=== PATIENT | female | born 1985 | race Caucasian/White ===

== ENCOUNTER 2017-01-14 08:45 | Inpatient (IN) | payer BC ==
[2017-01-21] MEDS ORDERED: Acetaminophen 500 MG Tab PO ONE (06:00)
[2017-01-21] MEDS ORDERED: Celecoxib 200 MG Cap PO ONE (06:00)
[2017-01-21] MEDS ORDERED: Dextrose 5%-Lactated Ringers 1,000 ML IV SCH ×3 (06:00→21:30)
[2017-01-21] MEDS ORDERED: Scopolamine 1.5 MG Transdermal Patch TOP ONE (06:00)
[2017-01-21] MEDS ORDERED: Gabapentin 300 MG Cap PO ONE (06:00)
[2017-01-21] MEDS ORDERED: cefOXitin 2 GM Vial ONE (06:39)
[2017-01-21] MEDS ORDERED: Glycopyrrolate 0.2 MG/ML 5 ML MDV ONE (06:49)
[2017-01-21] MEDS ORDERED: Rocuronium 50 MG/5 ML Vial ONE (06:49)
[2017-01-21] MEDS ORDERED: Succinylcholine 200 MG/10 ML MDV ONE (06:49)
[2017-01-21] MEDS ORDERED: Ondansetron 4 MG/2 ML SDV ONE (06:49)
[2017-01-21] MEDS ORDERED: Neostigmine Methylsulfate 1 MG/ML 5 ML Syringe ONE (06:49)
[2017-01-21] MEDS ORDERED: Propofol 200 MG/20 ML SDV ONE (06:49)
[2017-01-21] MEDS ORDERED: Dexamethasone 4 MG/ML SDV ONE (06:49)
[2017-01-21] MEDS ORDERED: cefOXitin 2 GM in Sodium Chloride 0.9% 100 ML IV ONE (07:30)
[2017-01-21] MEDS ORDERED: cefOXitin 2 GM in Sodium Chloride 0.9% 50 ML IV ONE (07:30)
[2017-01-21] MEDS ORDERED: Ropivacaine 60 ML, Dexamethasone 8 MG, EPINEPHrine 0.4 MG, Sodium Chloride 0.9% 17.6 ML NERVRT ONE ×4 (07:45)
[2017-01-21] MEDS ORDERED: Ketamine 500 MG/5 ML MDV IV ONE (07:45)
[2017-01-21] MEDS ORDERED: Lidocaine 2% 100 MG/5 ML Syringe IVPUSH ONE (07:45)
[2017-01-21] MEDS ORDERED: fentaNYL 100 MCG/2 ML SDV ONE (09:21)
[2017-01-21] MEDS ORDERED: Ondansetron 4 MG/2 ML SDV IVPUSH ONE (10:30)
[2017-01-21] MEDS ORDERED: hydrOXYzine HCl 100 MG/2 ML SDV IM ONE (10:30)
[2017-01-21] MEDS: Lidocaine 0.4%/D5W 2 GM/500 ML BAG IV SCH (11:53)
[2017-01-21] MEDS ORDERED: Labetalol 20 MG/4 ML Syringe IVPUSH PRN (12:00)
[2017-01-21] MEDS ORDERED: Ondansetron 4 MG/2 ML SDV IVPUSH PRN (12:00)
[2017-01-21] MEDS ORDERED: diphenhydrAMINE 50 MG/ML SDV IVPUSH PRN (12:00)
[2017-01-21] MEDS ORDERED: hydrOXYzine HCl 100 MG/2 ML SDV IM PRN (12:00)
[2017-01-21] MEDS ORDERED: Metoclopramide 10 MG/2 ML SDV IVPUSH PRN (12:00)
[2017-01-21] MEDS: cefOXitin 2 GM in Sodium Chloride 0.9% 50 ML IV SCH ×2 (12:26→17:38)
[2017-01-21] MEDS: MVI, Adult with Vitamin K 10 ML, Thiamine 200 MG, Chromium/Copper/Mang/Selen/Zn 1 ML in... IV SCH ×8 (13:56→15:36)
[2017-01-21] MEDS ORDERED: Pantoprazole 40 MG Vial IVPUSH SCH (14:00)
[2017-01-21] MEDS: Gabapentin 250 MG/5 ML Solution ML 470 ML Bottle PO SCH ×2 (14:42→20:28)
[2017-01-21] MEDS: Acetaminophen Soln 650 MG/20.3 ML UD Cup PO SCH ×2 (16:05→21:13)
[2017-01-21] MEDS: Heparin Sodium 5,000 Units/ML Vial SUBCUT SCH (17:38)
[2017-01-22] MEDS: Lidocaine 0.4%/D5W 2 GM/500 ML BAG IV SCH (00:14)
[2017-01-22] MEDS: cefOXitin 2 GM in Sodium Chloride 0.9% 50 ML IV SCH (00:18)
[2017-01-22] MEDS ORDERED: Iohexol 647 MG/ML 50 ML SDV PO STA (00:24)
[2017-01-22] MEDS: Acetaminophen Soln 650 MG/20.3 ML UD Cup PO SCH ×4 (04:49→21:41)
[2017-01-22] MEDS: Heparin Sodium 5,000 Units/ML Vial SUBCUT SCH ×2 (04:59→19:16)
[2017-01-22] MEDS ORDERED: Dextrose 5%-Lactated Ringers 1,000 ML IV SCH ×2 (08:00)
[2017-01-22] MEDS: SCOPOLAMINE PATCH CHECK TOP SCH (08:31)
[2017-01-22] MEDS: Celecoxib 200 MG Cap PO SCH (08:31)
[2017-01-22] MEDS: Gabapentin 250 MG/5 ML Solution ML 470 ML Bottle PO SCH ×3 (08:34→21:44)
--- NOTE | 2017-01-22 08:49 | CR ---
Limited upper GI The patient is status post Olga-en-Y gastric bypass. There are left upper quadrant drains in place. T here is no extravasation of contrast. The gastric pouch empties readily into a nondilated Olga limb. No complications are evident. Impression: 1. Status post Olga-en-Y gastric bypass without evidence for complication.
[2017-01-22] MEDS ORDERED: MVI, Adult with Vitamin K 10 ML, Thiamine 200 MG, Chromium/Copper/Mang/Selen/Zn 1 ML in... IV SCH ×4 (16:00)
[2017-01-23] MEDS: Heparin Sodium 5,000 Units/ML Vial SUBCUT SCH (05:07)
[2017-01-23] MEDS: Acetaminophen Soln 650 MG/20.3 ML UD Cup PO SCH ×2 (05:07→09:30)
[2017-01-23] MEDS: Celecoxib 200 MG Cap PO SCH (08:56)
[2017-01-23] MEDS ORDERED: Cyanocobalamin (Vitamin B12) 1,000 MCG/ML SDV IM ONE (09:00)
[2017-01-23] MEDS: Gabapentin 250 MG/5 ML Solution ML 470 ML Bottle PO SCH (09:01)
[2017-01-23] MEDS: SCOPOLAMINE PATCH CHECK TOP SCH (09:02)
--- NOTE | 2017-01-23 13:15 | PN ---
DATE OF SERVICE: 01/22/2017 The patient has been afebrile with stable vital signs. No major problems are noted overnight. Upper GI x-ray looks good. Oral intake has been satisfactory as is the urine output. Her pain control appears to be satisfactory. We will begin step-2 diet today, have her get in the shower, and back down the IV rate. She does not have any home medications that need to be restarted. Armando Brown MD /[id number]
--- NOTE | 2017-01-23 14:51 | OR ---
DATE OF PROCEDURE: 01/21/2017 PREOPERATIVE DIAGNOSIS: Morbid obesity. POSTOPERATIVE DIAGNOSES: 1. Morbid obesity. 2. Marked hepatomegaly. 3. Paraesophageal diaphragmatic hernia. OPERATIVE PROCEDURE: 1. Laparoscopic Olga-en-Y gastric bypass with long limb gastroenterostomy (22971). 2. Thomas-Cut needle liver biopsy (53996). 3. Repair of paraesophageal diaphragmatic hernia (39420). ANESTHESIA: General. MORTICIAN HELPER: Olimpia Bloom PA-C. INDICATION FOR PROCEDURE: This is a 31-year-old presenting with longstanding morbid obesity and increasingly significant comorbidities. After preoperative evaluation and discussion, she wished to proceed with a gastric bypass procedure. Potential risks including bleeding, infection, leaks from various GI tract closures, problems with bowel obstruction overtime, as well as possibility of cardiopulmonary, septic, or hemorrhagic complications leading to were all discussed, and the patient wishes to proceed. DETAILS OF PROCEDURE: The patient was taken to the operating room and placed in a supine position. After general endotracheal anesthesia was induced, she was converted to a lithotomy position. At that point, a bilateral subcostal transversus abdominis plane block was placed with continuous ultrasound visualization, injecting the usual solution on each side. The abdomen was then prepped and draped and an orogastric tube placed per anesthesia. At 15 cm inferior, 5 cm left of xiphoid process, a transverse incision was made and peritoneal cavity entered under direct vision with Optiview trocar inflated to 15 mmHg pressure of CO2. Laparoscope was then reinserted. No underlying trocar insertion site injuries were seen. Following this, 5 additional trocars were placed across the upper and mid abdomen, and general exploration was undertaken. The patient was noted to have marked hepatomegaly with liver being roughly 2 to 3 times normal as the liver grossly fatty infiltrated. Thomas-Cut needle biopsies were obtained from the left lobe of the liver. Minimal bleeding from the biopsy sites was controlled with electrocautery. The omentum was then divided in the midline up to the level of the transverse colon. This allowed identification of the small bowel at the ligament of Treitz. Small bowel was then traced out 150 cm distal to that point, where it was divided transversely with a JORDAN stapler. Small bowel was then traced out an additional 150 cm, where the [id number] enteroenterostomy was accomplished with internal firing of the Endo-JORDAN 60 mm stapler. The common opening was then closed transversely with the same stapler, angles anastomosed, and mesenteric defect approximated with some 0 Ethibond stitch, along with fibrin sealant. The divided end of the Olga limb was then from the mesentery for a few centimeters, which allowed an antecolic position of the Olga limb up to the level of the gastroesophageal junction without tension. The liver was then retracted anteriorly. The patient was noted to have a paraesophageal diaphragmatic hernia with prolapse of the perigastric fat and fundus in a plane anterior and slightly to the left of the course of the esophagus. The hernia was reduced, the peritoneum overlying it, incised and reflected downward. The diaphragmatic hernia was then repaired with some 0 Ethibond sutures, reinforced with PTFE pledgets in an anterior position. At this point, the gastrointestinal catheter was inflated to 15 mL and pulled up snugly against the EG junction. Gastric wall over the apex balloon was then marked with electrocautery, and balloon catheter deflated and pulled up from the esophagus. The lesser omental tissue adjacent to gastric cardia was then incised, allowing dissection behind the stomach at that level. Pouch formation was initiated with a transverse firing of the JORDAN stapler at the level of the cauterized dmitriy in the gastric cardia. Pouch was then completed with 2 additional firings up to and through the angle of His. Upon completion of the pouch, both staple lines were noted to be intact. The anvil of a 25 mm EEA stapler was attached to Heard sump type tube. The latter was brought down through the opening in the gastric pouch and allowing the anvil to be pulled down through the mouth and into the gastric pouch. The divided end of the Olga limb was then opened, and the main body of the EEA stapler was passed several centimeters in the lumen of the small bowel, brought up the anvil and united it, thus creating the gastrojejunostomy. Upon removal of the stapler, double donuts of mucosa were noted within it. Small bowel was closed off with a vascular staple line. Leak test was accomplished with injection of 120 mL of air in the gastric pouch while submerged with a cefoxitin- containing saline solution. No leaks were identified. One Rudy-Martínez drain was then placed adjacent to the gastrojejunostomy and taken out through the left subcostal trocar sites. The trocars were then sequentially removed and peritoneal cavity deflated. The incision was closed with some 4-0 Vicryl skin stitch and drains affixed with some 4-0 Vicryl stitch as well. Dressing applied. The patient was taken to the recovery room in satisfactory condition. Physician health information assistant, Olimpia Bloom, played an essential role in assisting in this case, helping to position the patient, retract structures as needed well as suturing and cutting sutures when indicated. Her presence improved patient safety and decreased the operative time. Armando Brown MD /[id number]
--- NOTE | 2017-01-24 11:17 | DISCH ---
ADMISSION DIAGNOSES: Morbid obesity, body mass index 52, hirsutism, irregular menses, polycystic ovary disease, hyperinsulinism, hypertriglyceridemia, nephrolithiasis and sleep apnea. DISCHARGE DIAGNOSES: Laparoscopic Olga-en-Y gastric bypass surgery with long limb gastroenterostomy, Thomas-Cut needle liver biopsy, and repair of paraesophageal diaphragmatic hernia for morbid obesity, marked hepatomegaly, and periesophageal diaphragmatic hernia. Date of surgery 01/21/2017. Surgeon is Armando Brown MD. HISTORY: Manju Rojas is a 31-year-old female with longstanding history of morbid obesity and increasingly significant comorbidities. After preoperative evaluation and discussion of possible risks and possible complications, she wished to proceed with surgical procedure. HOSPITAL COURSE: Manju had her surgery on 01/21/2017. She had no operative complications. On postop day #1, her upper GI was normal. She was started on a step-2 without cereal gastric bypass diet. On postop day 2, her activity was good. She received adequate staff and dietary education. Pain was controlled. Vital signs were stable, and she was able to be discharged to home. PHYSICAL EXAMINATION: GENERAL: Manju Rojas is a 31-year-old female. VITAL SIGNS: Height is 5 feet 5 inches. Weight is 315 pounds. BMI is 52. TPR 96.4, 70, 16. Blood pressure 132/73. HEENT: Negative. NECK: Supple. HEART: Regular rate and rhythm. LUNGS: Clear. ABDOMEN: Sutures in place 4 x 4 over previous SAGE drain site. Abdominal binder is on. EXTREMITIES: Without peripheral edema. DISPOSITION: Discharged to home. CONDITION: Stable and improving. FOLLOWUP APPOINTMENT: With Olimpia Bloom PA-C, on 01/31/2017 at 10 a.m. HOME MEDICATIONS: 1. Tylenol 650 mg/20.3 mL to take 650 mL every 6 hours for 2 weeks to 1200 mL prescribed. 2. Celebrex 200 mg p.o. daily #14. 3. Nexium 40 mg continue as she took at home. 4. Flonase, use as directed. DIET: Step-2 gastric bypass diet without cereal for 2 weeks. Drink 8 to 10 glasses of water a day. ACTIVITY: No lifting greater than 10 pounds for 2 weeks. Driving, do not drive for 1 week. Shower/bathing, may shower. Keep operative site clean and dry. Wear abdominal binder for 2 weeks and then as tolerated. Notify provider of fever, increased pain, swelling, redness, nausea or vomiting. Use incentive spirometer 10 times every hour while awake.
== END 2017-01-23 10:39 | disposition home or self-care (01) | DRG 403 ==
LOC: JP.SDS 01-21 05:36 → JP.SDSSCHI 01-21 05:36 → EDSTATUS 01-21 07:30 → JP.2SS 01-21 09:50
PROVIDERS: ADMIT Surgery; ATTEND Surgery
PROC: 0D164ZA Bypass Stomach to Jejunum, Percutaneous Endoscopic Approach (ICD-10-PCS; principal; 2017-01-21)
PROC: 0FB24ZX Excision of Left Lobe Liver, Percutaneous Endoscopic Approach, Diagnostic (ICD-10-PCS; 2017-01-21)
PROC: 0BQT4ZZ Repair Diaphragm, Percutaneous Endoscopic Approach (ICD-10-PCS; 2017-01-21)
PROC: 3E0T3BZ Introduction of Anesthetic Agent into Peripheral Nerves and Plexi, Percutaneous Approach (ICD-10-PCS; 2017-01-21)
DX: E66.01 Morbid (severe) obesity due to excess calories (principal); R16.0 Hepatomegaly, not elsewhere classified; K44.9 Diaphragmatic hernia without obstruction or gangrene; E28.2 Polycystic ovarian syndrome; G47.30 Sleep apnea, unspecified; Z87.891 Personal history of nicotine dependence; R76.0 Raised antibody titer; R12 Heartburn; Z68.43 Body mass index [BMI] 50.0-59.9, adult
CPT/HCPCS: 36415; 74240; 74240-26; 82962; 86850; 86900; 86901; 88307; 88313; A9270-GY; C9113; J0171; J0330; J0694; J1100; J1644; J2001; J2405; J2704; J2710; J2795; J3010; J3410; J3411; J3420; J7030; J7040; J7042; J7050; Q9967

== ENCOUNTER 2017-12-19 06:42 | Day surgery (SDC) | payer BC ==
[2017-12-19] MEDS ORDERED: Propofol 200 MG/20 ML SDV ONE (07:35)
[2017-12-19] MEDS ORDERED: fentaNYL 100 MCG/2 ML SDV ONE (07:35)
[2017-12-19] MEDS ORDERED: Midazolam 1 MG/ML 2 ML SDV ONE (07:35)
[2017-12-19] MEDS ORDERED: Dextrose 5%-Lactated Ringers 1,000 ML IV SCH (07:45)
[2017-12-19] MEDS: Glycopyrrolate 0.2 MG/ML 2 ML SDV IVPUSH ONE (08:01)
[2017-12-19] MEDS ORDERED: Pantoprazole 40 MG Vial IVPUSH ONE (08:34)
--- NOTE | 2017-12-24 06:52 | OR ---
DATE OF PROCEDURE: 12/19/2017 PREOPERATIVE DIAGNOSIS: Epigastric pain status post Olga-en-Y gastric bypass. POSTOPERATIVE DIAGNOSIS: Mild pouch gastritis. OPERATIVE PROCEDURE: Upper GI endoscopy with biopsies of gastric pouch for CLOtest. ANESTHESIA: IV sedation. INDICATION FOR PROCEDURE: This is a 32-year-old status post Olga-en-Y gastric bypass in January 2017. She presents now with some ongoing epigastric discomfort. The plan is to proceed with upper GI endoscopy with biopsies and/or dilation as indicated. Potential risks including bleeding and perforation were discussed, and the patient wishes to proceed. DESCRIPTION OF PROCEDURE: The patient was taken to the operating room and placed in a left lateral decubitus position. IV sedation was administered, after which the upper GI endoscope was passed orally through the length of the esophagus into the gastric pouch, from there through the gastrojejunostomy roughly 20 cm into the Olga limb. Findings included normal hypopharynx, larynx, upper esophageal sphincter, and esophageal body. At the EG junction, there was minimal inflammation; however, the gastric pouch itself was quite edematous and reddened and patchy areas consistent with some pouch gastritis. There was no stricturing at the gastrojejunostomy. This was widely open and no marginal ulcers present at the anastomotic site as well. The remaining portion of the Olga limb was visualized and was unremarkable. At this point, biopsies were obtained from the gastric pouch, sent for CLOtest for H. pylori. Minimal bleeding from the biopsy sites was seen, and the procedure was then concluded. The patient was taken to the recovery room in satisfactory condition. The patient will be given Protonix 40 mg IV in the recovery room and then begin on Protonix 40 mg orally daily. She will be following up with Olimpia Bloom in [facility] on 01/07/2018. Armando Brown MD /[id number] BRENDEN Her
== END 2017-12-19 09:45 | disposition home or self-care (01) ==
LOC: JP.SDS 06:42
PROVIDERS: ATTEND Surgery
DX: K29.70 Gastritis, unspecified, without bleeding (principal); K91.89 Other postprocedural complications and disorders of digestive system; E66.01 Morbid (severe) obesity due to excess calories; F17.200 Nicotine dependence, unspecified, uncomplicated; Z98.84 Bariatric surgery status
CPT/HCPCS: 43239; 87081; C9113; J2250; J2704; J3010; J3490; J7042

== ENCOUNTER 2020-03-27 15:24 | Inpatient (IN) | payer BC ==
[2020-03-27] MEDS ORDERED: Acetaminophen 325 MG Tab PO PRN (16:52)
[2020-03-27] MEDS ORDERED: Acetaminophen 650 MG Supp RECTAL PRN (16:52)
[2020-03-27] MEDS ORDERED: Ondansetron 4 MG/2 ML SDV IVPUSH PRN (16:53)
[2020-03-27] MEDS ORDERED: HYDROmorphone 1 MG/ML Syringe IVPUSH PRN (16:54)
[2020-03-27] MEDS ORDERED: HYDROmorphone 0.5 MG/0.5 ML Syringe IVPUSH PRN (16:54)
[2020-03-27] MEDS ORDERED: cefOXitin 2 GM in Sodium Chloride 0.9% 50 ML IV ONE (17:00)
[2020-03-27] MEDS ORDERED: Dextrose 5%-Lactated Ringers 1,000 ML IV SCH (17:00)
[2020-03-27] MEDS: Pantoprazole 40 MG Vial IVPUSH SCH (17:59)
[2020-03-27] MEDS ORDERED: MVI, Adult with Vitamin K 10 ML, Thiamine 200 MG, Chromium/Copper/Mang/Selen/Zn 1 ML in... IV SCH ×4 (20:30)
[2020-03-27] MEDS ORDERED: Thiamine 200 MG/2 ML MDV ONE (20:45)
[2020-03-27] MEDS ORDERED: MVI, Adult with Vitamin K 10 ML SDV ONE (20:45)
--- NOTE | 2020-03-28 08:12 | PN ---
DATE OF SERVICE: 03/28/2020 SUBJECTIVE: Manju has a partial small-bowel obstruction and intussusception at the jejunojejunostomy. She is n.p.o. Vital signs have been stable, and she will be having surgery. Case to follow today. REVIEW OF SYSTEMS: The remainder of the review of systems is negative for any pertinent positives and negatives. OBJECTIVE: GENERAL: Manju is a pleasant 34-year-old female. VITAL SIGNS: TPR 98.1, 76, and 18 and blood pressure 110/67. HEENT: Negative. NECK: Supple. HEART: Regular rate and rhythm. LUNGS: Clear. ABDOMEN: Soft. Minimally tender. EXTREMITIES: Without peripheral edema. ASSESSMENT: 1. Intussusception at the jejunojejunostomy. 2. Status post Olga-en-Y gastric bypass surgery. 3. Unspecified surgical malabsorption. 4. Reactive hypoglycemia. 5. Vitamin B12 deficiency. 6. Vitamin D deficiency. 7. Polycystic ovary disease. 8. Sleep apnea. PLAN: Remain n.p.o. Orders are to be written postoperatively. Olimpia Bloom PA-C /[id number]
[2020-03-28] MEDS ORDERED: fentaNYL 250 MCG/5 ML SDV ONE ×2 (09:10→10:53)
[2020-03-28] MEDS ORDERED: Rocuronium 50 MG/5 ML Vial ONE (09:11)
[2020-03-28] MEDS ORDERED: Succinylcholine 200 MG/10 ML MDV ONE (09:11)
[2020-03-28] MEDS ORDERED: Dexamethasone 4 MG/ML SDV ONE (09:11)
[2020-03-28] MEDS ORDERED: Ondansetron 4 MG/2 ML SDV ONE (09:11)
[2020-03-28] MEDS ORDERED: Neostigmine Methylsulfate 1 MG/ML 5 ML Syringe ONE (09:11)
[2020-03-28] MEDS ORDERED: Glycopyrrolate 0.2 MG/ML 5 ML MDV ONE (09:11)
[2020-03-28] MEDS ORDERED: Propofol 200 MG/20 ML SDV ONE (09:11)
[2020-03-28] MEDS ORDERED: Meropenem 500 MG SDV ONE (09:20)
[2020-03-28] MEDS ORDERED: Bupivacaine 0.5% 50 ML MDV ONE (09:20)
[2020-03-28] MEDS ORDERED: Lidocaine 1% with EPINEPHrine 1:100,000 50 ML MDV ONE (09:20)
[2020-03-28] MEDS ORDERED: Lactated Ringers 1,000 ML ONE (10:25)
[2020-03-28] MEDS: cefOXitin 2 GM in Sodium Chloride 0.9% 50 ML IV ONE ×2 (10:59→12:49)
[2020-03-28] MEDS ORDERED: Ketamine 500 MG/5 ML MDV IV SCH (11:00)
[2020-03-28] MEDS ORDERED: Ketamine 50 MG in Sodium Chloride 0.9% 49.5 ML IV SCH (11:00)
[2020-03-28] MEDS ORDERED: Magnesium Sulfate 2.6 GM in Sodium Chloride 0.9% 100 ML IV SCH (11:00)
[2020-03-28] MEDS ORDERED: Ropivacaine 44 ML, dexAMETHasone 8 MG, EPINEPHrine 0.4 MG, Sodium Chloride 0.9% 33.6 ML NERVRT SCH ×4 (11:00)
[2020-03-28] MEDS ORDERED: hydrOXYzine HCL 100 MG/2 ML SDV IM ONE (12:00)
[2020-03-28] MEDS ORDERED: fentaNYL 100 MCG/2 ML SDV IVPUSH ONE (12:01)
[2020-03-28] MEDS ORDERED: HYDROmorphone/Normal Saline 15 MG/30 ML PCA IV PRN (12:39)
[2020-03-28] MEDS ORDERED: hydrOXYzine HCL 100 MG/2 ML SDV IM PRN (13:00)
[2020-03-28] MEDS ORDERED: Acetaminophen 500 MG Tab PO PRN (13:00)
[2020-03-28] MEDS ORDERED: diphenhydrAMINE 50 MG/ML SDV IVPUSH PRN (13:00)
[2020-03-28] MEDS ORDERED: Naloxone 0.4 MG/ML SDV IV PRN (13:00)
[2020-03-28] MEDS ORDERED: Labetalol 20 MG/4 ML Syringe IVPUSH PRN (13:00)
[2020-03-28] MEDS ORDERED: Metoclopramide 10 MG/2 ML SDV IVPUSH PRN (13:00)
[2020-03-28] MEDS ORDERED: Ondansetron 4 MG/2 ML SDV IVPUSH PRN (13:00)
[2020-03-28] MEDS ORDERED: Scopolamine 1.5 MG Transdermal Patch TOP SCH (14:00)
[2020-03-28] MEDS: Acetaminophen 500 MG Tab PO SCH ×2 (14:36→23:06)
[2020-03-28] MEDS: FLUoxetine 20 MG Cap PO SCH (14:36)
[2020-03-28] MEDS: Cyclobenzaprine 10 MG Tab PO PRN ×2 (14:41→23:05)
[2020-03-28] MEDS ORDERED: MVI, Adult with Vitamin K 10 ML, Thiamine 200 MG, Zinc/Copper/Manganese/Selenium 1 ML i... IV SCH ×4 (16:00)
[2020-03-28] MEDS: cefOXitin 2 GM in Sodium Chloride 0.9% 50 ML IV SCH ×2 (17:12→23:07)
[2020-03-28] MEDS: Pantoprazole 40 MG Vial IVPUSH SCH (17:12)
[2020-03-28] MEDS: Heparin Sodium 5,000 Units/ML Vial SUBCUT SCH (20:35)
[2020-03-28] MEDS: Celecoxib 200 MG Cap PO SCH (20:35)
[2020-03-28] MEDS: Dextrose 5%-Lactated Ringers 1,000 ML IV SCH (21:24)
[2020-03-28] MEDS ORDERED: Calcium Gluconate 10% 1 GM/10 ML SDV IVPUSH PRN (23:59)
[2020-03-29] MEDS ORDERED: Iopamidol 612 MG/ML 50 ML SDV PO STA (03:37)
[2020-03-29] MEDS: Dextrose 5%-Lactated Ringers 1,000 ML IV SCH (03:43)
[2020-03-29] MEDS: cefOXitin 2 GM in Sodium Chloride 0.9% 50 ML IV SCH (04:47)
[2020-03-29] MEDS: Acetaminophen 500 MG Tab PO SCH (05:48)
[2020-03-29] MEDS ORDERED: HYDROmorphone 2 MG Tab PO PRN (06:57)
[2020-03-29] MEDS ORDERED: Ondansetron 4 MG Tab.DIS PO PRN (06:57)
[2020-03-29] MEDS ORDERED: Dextrose 5%-Lactated Ringers 1,000 ML IV SCH (07:00)
[2020-03-29] MEDS ORDERED: Celecoxib 200 MG Cap PO SCH (08:00)
--- NOTE | 2020-03-29 08:29 | DISCH ---
ADMISSION DIAGNOSES: 1. Intussusception/small-bowel obstruction, status post Olga-en-Y gastric bypass surgery. 2. Unspecified surgical malabsorption. 3. B12 deficiency. 4. Chronic constipation. 5. Depression. 6. Hypertriglyceridemia. 7. Reactive hypoglycemia. 8. History of migraine headaches. 9. Polycystic ovary syndrome. 10.Sleep apnea. 11.Smoking addiction. DISCHARGE DIAGNOSIS: Exploratory laparotomy with: 1. Reduction of small bowel volvulus and closure of internal hernia. 2. Small bowel resection. 3. Cecal pexy. 4. Placement of Interceed mesh. POSTOPERATIVE DIAGNOSES: 1. Small bowel obstruction secondary to small bowel volvulus. 2. Chronic intussusception at the jejunojejunostomy. 3. Hypermobile cecum. DATE OF PROCEDURE: 03/28/2020. SURGEON: Armando Brown MD. HISTORY: Manju Rojas is a 34-year-old female with postprandial abdominal pain. After preoperative evaluation and discussion of possible risks and possible complications, she wished to proceed with surgical procedure. HOSPITAL COURSE: Manju had her surgery on 03/28/2020. She had no operative complications. On postoperative day #1, she was able to be discharged to home. Pain was controlled. Activity good. Oral intake on step 2 gastric bypass diet with no cereal adequate. PHYSICAL EXAMINATION: GENERAL: Manju Rojas is a 34-year-old female. VITAL SIGNS: Height is 5 feet 6 inches. Weight is 195 pounds. BMI is 31.5. HEENT: Negative. NECK: Supple. HEART: Regular rate and rhythm. LUNGS: Clear. ABDOMEN: Aquacel dressings. Clean and dry. Abdominal binder is on. EXTREMITIES: Without peripheral edema. DISPOSITION: Discharged to home. CONDITION: Stable and improving. FOLLOWUP: Appointment with Olimpia Bloom PA-C, on 04/07/2020 at 10 a.m. This appointment will be virtual, and she will have her sharri removed at her primary care provider office. HOME MEDICATIONS: 1. Celebrex 200 mg oral b.i.d., #28. 2. Dilaudid 2 mg 1 to 2 every 4 hours p.r.n. pain, #42. 3. Tylenol 1000 mg every 8 hours p.r.n. pain. 4. Zofran ODT 4 mg sublingual every 4 hours p.r.n. nausea. 5. Tylenol Extra Strength 1000 mg every 8 hours. 6. Flonase 2 sprays in each nostril p.r.n. rhinitis. 7. Triamcinolone cream 1 applicator twice daily. 8. Vitamin A 3000 mcg oral daily. Discontinue taking vitamin D3, B12, multivitamin, and calcium until after first postop appointment. DIET: Step 2 gastric bypass diet with no cereal until 04/11/2020. ACTIVITY: No lifting greater than 10 pounds for 6 weeks. Other activity: Walk at least 6 times daily inside your home. Driving: Do not drive for 1 week. Shower/bathing: May shower. DISCHARGE INSTRUCTIONS: Notify provider if any fever, increased pain, swelling, redness, drainage, nausea, or vomiting. Wound incision care: Keep site clean and dry. Take off Aquacel dressing on , 03/31/2020. Wear abdominal binder for 6 weeks if tolerated. Special instruction: Use incentive spirometer 10 times every hour while awake for 1 week. /[id number]
[2020-03-29] MEDS: FLUoxetine 20 MG Cap PO SCH (08:56)
[2020-03-29] MEDS: Heparin Sodium 5,000 Units/ML Vial SUBCUT SCH (08:56)
[2020-03-29] MEDS: Celecoxib 200 MG Cap PO SCH (08:56)
[2020-03-29] MEDS ORDERED: SCOPOLAMINE PATCH CHECK TOP SCH (09:00)
[2020-03-29] MEDS ORDERED: Liraglutide (rDNA Origin) 0.6 MG/0.1 ML 3 ML Pen SUBCUT SCH (09:00)
--- NOTE | 2020-03-29 09:42 | CR ---
UGI Limited HISTORY: Postbariatric surgery FINDINGS: There is contrast in the colon from previous CT. This obscures some detail in the left upper quadrant. Patient swallowed water-soluble contrast. Upright views of the abdomen show no evidence of extravasation or obstruction. IMPRESSION: Status post bariatric surgery No extravasation or obstruction seen
[2020-03-29] MEDS ORDERED: MVI, Adult with Vitamin K 10 ML, Thiamine 200 MG, Zinc/Copper/Manganese/Selenium 1 ML i... IV SCH ×4 (16:00)
[2020-03-30] MEDS ORDERED: Cyanocobalamin (Vitamin B12) 1,000 MCG/ML SDV IM ONE (09:00)
--- NOTE | 2020-04-04 14:14 | OR ---
DATE OF PROCEDURE: 03/28/2020 SURGEON: Armando Brown MD PREOPERATIVE DIAGNOSIS: Partial small bowel obstruction associated with intussusception on the CT scan. POSTOPERATIVE DIAGNOSES: 1. Partial small bowel obstruction secondary to: a. Small bowel volvulus. b. Chronic intussusception at previous jejunojejunostomy. 2. Hypermobile cecum. OPERATIVE PROCEDURE: 1. Exploratory laparotomy with: a. Reduction of small bowel volvulus and closure of internal hernia (97459). b. Small bowel resection (49110). c. Cecopexy (34282). d. Placement of Interceed mesh to limit recurrent adhesion formation of pelvic and abdominal wall and underlying viscera (77459). ANESTHESIA: General. GSE MECHANIC: Olimpia Bloom PA-C INDICATIONS FOR PROCEDURE: This is a 34-year-old status post previous Olga-en-Y gastric bypass presenting with intussusception at the previous jejunojejunostomy. There was also some suggestion of partial obstruction related to hypermobile cecum on CT scan. The plan is to proceed with limited exploratory laparotomy with procedures as indicated and most likely including revision of the jejunojejunostomy and possible cecopexy depending on the intraoperative inspection of that structure. Potential risks of the procedure including bleeding, infection, leaks from various GI tract closures, and problems with bowel obstruction over time recurring were all reviewed and the patient wishes to proceed. The patient would like to lose little bit more weight, and we will consider reconstructing the small bowel limb lengths so as to facilitate some additional weight loss. Potential side effects from that such as decreased frequency of bowel movements and need for additional rigorousness with regard to following up of metabolic and nutritional issues were all gone over and likewise the patient wishes to proceed. DETAILS OF PROCEDURE: The patient was taken to the operating room and placed in a supine position after general endotracheal anesthesia was induced. A Rodriguez catheter was inserted and the abdomen prepped and draped. A midline incision from the umbilicus roughly a handsbreadth towards the xiphoid was then made and carried down through the full thickness of abdominal wall. Upon entering the peritoneal cavity, the small bowel was inspected. As expected, the patient's jejunojejunostomy noted to be quite edematous and hyperemic related to recurrent problems with intussusception. The patient was also noted to have small bowel volvulus with rotation of large portion of the small bowel underneath the space between the Olga limb and the underlying transverse colon. This was reduced and that mesenteric defect then closed with 2-0 silk stitch. The point where the Olga limb entered the jejunojejunostomy was then detached with a JORDAN stapler. The remaining Olga limb at the point of the biliopancreatic limb entering wider than the common limb was felt to be otherwise intact at this point. The Olga limb at this point was measured to be at 200 cm and we then moved the jejunojejunostomy down further distally with the common limb now being at 250 cm and the biliopancreatic limb at 150 cm. At that point, the [id number] enteroenterostomy was accomplished with internal firing of the Endo-JORDAN 60 mm stapler, followed by 30 mm stapler. Common opening was then closed transversely with the JORDAN stapler as well and the angles anastomosed and mesenteric defect approximated with some 3-0 Vicryl stitch and silk stitch for the mesentery portion. The cecum was then inspected. This was noted to quite hypermobile and appeared to be resembling somewhat of a picture of cecal bascule. Given this, the fatty tissue, i.e., appendix epiploica along the edges of the cecum were then sutured with 2-0 silk stitch up to the lateral abdominal wall thus fixing the cecum in place. Several of these sutures were placed ultimately creating enough scar that it would remain in place at that point. Intention was then to suture the bowel wall itself to avoid any potential complications in that regard, but the fatty tissue attached to it point of scar fixation. At this point, no further problems were noted. Bilateral transverse abdominis plane blocks were placed and the abdomen irrigated with meropenem-containing saline solution. Interceed mesh was then placed underneath the incision and from there down towards the pelvis to limit recurrent adhesion formation between the pelvic and abdominal wall and underlying viscera. Midline fascia was then approximated with #2 Vicryl stitch, the subcutaneous tissue with 2 layers of 3-0 and 4-0 Vicryl stitch and the skin with sharri. Dressing was applied. The patient was taken to the recovery room in satisfactory condition. Physician restaurant assistant, Olimpia Bloom PA-C, played an essential role in assisting in this case, helping to position the patient, retract structures as needed as well as suturing and cutting sutures when indicated. Her presence improved patient safety and decreased operative time. Armando Brown MD /[id number]
== END 2020-03-29 10:55 | disposition home or self-care (01) | DRG 221 ==
LOC: JP.MS 16:49
PROVIDERS: ADMIT Surgery; ATTEND Physician Assistant Medical
PROC: 0DB80ZZ Excision of Small Intestine, Open Approach (ICD-10-PCS; principal; 2020-03-28)
PROC: 0DS80ZZ Reposition Small Intestine, Open Approach (ICD-10-PCS; 2020-03-28)
PROC: 0DQH0ZZ Repair Cecum, Open Approach (ICD-10-PCS; 2020-03-28)
PROC: 3E0M05Z Introduction of Adhesion Barrier into Peritoneal Cavity, Open Approach (ICD-10-PCS; 2020-03-28)
DX: K95.89 Other complications of other bariatric procedure (principal); K56.2 Volvulus; K56.1 Intussusception; K90.9 Intestinal malabsorption, unspecified; E53.8 Deficiency of other specified B group vitamins; K59.09 Other constipation; F32.9 Major depressive disorder, single episode, unspecified; E78.1 Pure hyperglyceridemia; E16.2 Hypoglycemia, unspecified; G43.909 Migraine, unspecified, not intractable, without status migrainosus; E28.2 Polycystic ovarian syndrome; G47.30 Sleep apnea, unspecified; F17.210 Nicotine dependence, cigarettes, uncomplicated; Y83.8 Other surgical procedures as the cause of abnormal reaction of the patient, or of later complication, without mention of misadventure at the time of the procedure; K58.9 Irritable bowel syndrome, unspecified
CPT/HCPCS: 36415; 74240; 74240-26; 80053; 83735; 84100; 85027; 88307; A9270-GY; C9113; J0171; J0330; J0694; J1100; J1644; J2020; J2185; J2405; J2704; J2710; J2795; J3010; J3410; J3411; J3475; J3490; J7050; J7120; J7121; Q9967

== ENCOUNTER 2020-07-26 07:23 | Inpatient (IN) | payer BC ==
[~2020-07-26 07:23] MED LIST: Bupivacaine 0.5% 50 ML MDV ONE; Dexamethasone 4 MG/ML SDV ONE; Glycopyrrolate 0.2 MG/ML 5 ML MDV ONE; Lidocaine 1% with EPINEPHrine 1:100,000 50 ML MDV ONE; Meropenem 500 MG SDV ONE; Neostigmine Methylsulfate 1 MG/ML 5 ML Syringe ONE; Ondansetron 4 MG/2 ML SDV ONE; Propofol 200 MG/20 ML SDV ONE; Rocuronium 50 MG/5 ML Vial ONE; Succinylcholine 200 MG/10 ML MDV ONE; fentaNYL 250 MCG/5 ML SDV ONE
[2020-07-26] MEDS ORDERED: Celecoxib 200 MG Cap PO ONE (07:30)
[2020-07-26] MEDS ORDERED: ceFAZolin 2 GM in Premix Bag 1 BAG IV ONE (07:30)
[2020-07-26] MEDS ORDERED: Acetaminophen 500 MG Tab PO ONE (07:30)
[2020-07-26] MEDS ORDERED: Dextrose 5%-Lactated Ringers 1,000 ML IV SCH (08:00)
[2020-07-26] MEDS ORDERED: Ketamine 50 MG in Sodium Chloride 0.9% 49.5 ML IV SCH (09:30)
[2020-07-26] MEDS ORDERED: Ketamine 500 MG/5 ML MDV IV SCH (09:30)
[2020-07-26] MEDS ORDERED: fentaNYL 100 MCG/2 ML SDV ONE ×2 (11:33→11:44)
[2020-07-26] MEDS ORDERED: Lactated Ringers 1,000 ML ONE (12:03)
[2020-07-26] MEDS ORDERED: hydrOXYzine HCL 100 MG/2 ML SDV IM ONE (12:38)
[2020-07-26] MEDS ORDERED: Naloxone 0.4 MG/ML SDV IVPUSH PRN (12:47)
[2020-07-26] MEDS: HYDROmorphone/Normal Saline 15 MG/30 ML PCA IV PRN (13:27)
[2020-07-26] MEDS: Cyclobenzaprine 10 MG Tab PO PRN (13:52)
[2020-07-26] MEDS ORDERED: Ondansetron 4 MG/2 ML SDV IVPUSH PRN (14:00)
[2020-07-26] MEDS ORDERED: Metoclopramide 10 MG/2 ML SDV IVPUSH PRN (14:00)
[2020-07-26] MEDS ORDERED: Acetaminophen 500 MG Tab PO PRN (14:00)
[2020-07-26] MEDS ORDERED: hydrOXYzine HCL 100 MG/2 ML SDV IM PRN (14:00)
[2020-07-26] MEDS ORDERED: Labetalol 20 MG/4 ML Syringe IVPUSH PRN (14:00)
--- NOTE | 2020-07-26 14:19 | CR ---
Abdomen 1V Flat CLINICAL HISTORY: Instrument count FINDINGS: There is a limited portable abdominal study in the OR. There are sutures a round the mid abdomen consistent with ventral hernia repair. No other radiopacities or suspicious foreign body seen. There is some overlying density which appear to be suture lines IMPRESSION: No definite foreign body seen
[2020-07-26] MEDS ORDERED: Pantoprazole 40 MG Vial IVPUSH SCH (16:00)
[2020-07-26] MEDS: Sodium Ferric Gluconate Cmplex 250 MG in Sodium Chloride 0.9% 100 ML IV SCH (16:23)
[2020-07-26] MEDS: Acetaminophen 500 MG Tab PO SCH ×2 (16:27→23:11)
[2020-07-26] MEDS: ceFAZolin 2 GM in Premix Bag 1 BAG IV SCH ×2 (16:27→23:14)
[2020-07-26] MEDS: diphenhydrAMINE 50 MG/ML SDV IVPUSH PRN ×2 (18:03→23:26)
[2020-07-26] MEDS: MVI, Adult with Vitamin K 10 ML, Thiamine 200 MG, Zinc/Copper/Manganese/Selenium 1 ML i... IV SCH ×8 (18:19→20:20)
[2020-07-26] MEDS: Heparin Sodium 5,000 Units/ML Vial SUBCUT SCH (20:22)
[2020-07-26] MEDS: [UNRECOGNIZED DRUG - OTHER] PO SCH (20:22)
[2020-07-27] MEDS: Dextrose 5%-Lactated Ringers 1,000 ML IV SCH ×2 (00:07→06:25)
[2020-07-27] MEDS: diphenhydrAMINE 50 MG/ML SDV IVPUSH PRN ×4 (03:49→21:58)
[2020-07-27] MEDS: Acetaminophen 500 MG Tab PO SCH ×3 (05:36→21:58)
[2020-07-27] MEDS: Cyclobenzaprine 10 MG Tab PO PRN ×2 (05:38→21:58)
[2020-07-27] MEDS ORDERED: Ondansetron 4 MG Tab.DIS PO PRN (07:52)
[2020-07-27] MEDS ORDERED: Dextrose 5%-Lactated Ringers 1,000 ML IV SCH (08:00)
[2020-07-27] MEDS: ceFAZolin 2 GM in Premix Bag 1 BAG IV SCH (09:06)
[2020-07-27] MEDS: FLUoxetine 20 MG Cap PO SCH (09:06)
[2020-07-27] MEDS: Heparin Sodium 5,000 Units/ML Vial SUBCUT SCH ×2 (09:06→19:30)
[2020-07-27] MEDS: Nicotine 14 MG/24 Hr Patch TRDERM SCH (09:06)
[2020-07-27] MEDS: Celecoxib 200 MG Cap PO SCH ×2 (09:07→21:58)
[2020-07-27] MEDS: Bisacodyl 5 MG Tab PO SCH ×2 (09:07→21:58)
[2020-07-27] MEDS: Docusate Sodium 100 MG Cap PO SCH ×2 (09:07→21:58)
--- NOTE | 2020-07-27 10:11 | PN ---
DATE OF SERVICE: 07/27/2020 SUBJECTIVE: Manju is postoperative day #1. She states her pain is controlled. Oral intake is 1280. She had 3075 out of her Rodriguez catheter. She has no other concerns or questions. OBJECTIVE: GENERAL: Manju Rojas is a pleasant 35-year-old female. She is alert and orientated. VITAL SIGNS: TPR is 96.3, 64, 18, blood pressure 107/70. HEENT: Negative. NECK: Supple. HEART: Regular rate and rhythm. LUNGS: Clear. ABDOMEN: Aquacel dressing is on. She has a rolled Kerlix under abdominal binder. EXTREMITIES: Without peripheral edema. ASSESSMENT: 1. Exploratory laparotomy with lysis of adhesions. 2. Repair of incarcerated umbilical and incarcerated incisional hernias with mesh. 3. Reduction of small bowel volvulus. 4. Excision of peritoneal nodule. 5. Placement of Vicryl mesh. POSTOPERATIVE DIAGNOSES: 1. Incarcerated incisional hernia. 2. Incarcerated umbilical hernia. 3. Peritoneal nodule causing distortion of the small bowel 11.5 cm. 4. Small bowel volvulus. 5. Date of procedure: 07/26/2020. Surgeon: Armando Brown MD. PLAN: 1. Step 3 gastric bypass diet. 2. Discontinue Rodriguez catheter. 3. Decrease IV to 125 mg/125 mL per hour. 4. Nicotine patch 14, replace every 24 hours. 5. Colace 100 mg b.i.d. orally. 6. Dulcolax 10 mg tablets b.i.d. 7. May shower. 8. We will evaluate p.r.n. or in a.m. Olimpia Bloom PA-C /[id number]
[2020-07-27] MEDS: Sodium Ferric Gluconate Cmplex 250 MG in Sodium Chloride 0.9% 100 ML IV SCH (14:38)
[2020-07-27] MEDS: HYDROmorphone/Normal Saline 15 MG/30 ML PCA IV PRN (15:17)
[2020-07-27] MEDS: Pantoprazole 40 MG Delayed-Release Granules 1 Packet PO SCH (16:57)
[2020-07-27] MEDS: [UNRECOGNIZED DRUG - OTHER] PO SCH (21:57)
[2020-07-27] MEDS: Zolpidem 5 MG Tab PO PRN (21:58)
[2020-07-27] MEDS: MVI, Adult with Vitamin K 10 ML, Thiamine 200 MG, Zinc/Copper/Manganese/Selenium 1 ML i... IV SCH ×4 (22:02)
[2020-07-28] MEDS: Acetaminophen 500 MG Tab PO SCH ×3 (05:57→22:08)
[2020-07-28] MEDS ORDERED: Tamsulosin 0.4 MG Cap.ER PO ONE (06:42)
[2020-07-28] MEDS ORDERED: Cyanocobalamin (Vitamin B12) 1,000 MCG/ML SDV IM ONE (09:00)
[2020-07-28] MEDS: Heparin Sodium 5,000 Units/ML Vial SUBCUT SCH ×2 (09:00→20:06)
[2020-07-28] MEDS: Docusate Sodium 100 MG Cap PO SCH ×2 (09:01→22:08)
[2020-07-28] MEDS: Bisacodyl 5 MG Tab PO SCH ×2 (09:01→22:08)
[2020-07-28] MEDS: Celecoxib 200 MG Cap PO SCH ×2 (09:01→22:08)
[2020-07-28] MEDS: Nicotine 14 MG/24 Hr Patch TRDERM SCH (09:01)
[2020-07-28] MEDS: FLUoxetine 20 MG Cap PO SCH (09:02)
[2020-07-28] MEDS ORDERED: Dicyclomine 10 MG Cap PO PRN (11:13)
[2020-07-28] MEDS: HYDROmorphone 2 MG Tab PO PRN ×3 (11:40→22:13)
--- NOTE | 2020-07-28 14:39 | PN ---
DATE OF SERVICE: 07/28/2020 SUBJECTIVE: Manju is postop day #2, she was unable to void after her Rodriguez catheter was taken out. She was bladder scanned last evening with 990 mL. Straight cath was done to relieve bladder. She now has not voided since. States this has happened before when she had an EKG with IV sedation. Oral intake 1450 and output 1950. States she slept well with the Ambien last night. Has no other questions or concerns. OBJECTIVE: GENERAL: Manju Rojas is a pleasant 35-year-old female. She is alert and orientated, quite talkative. VITAL SIGNS: TPR is 97.2, 73, 18, and blood pressure 111/73. HEENT: Negative. NECK: Supple. HEART: Regular rate and rhythm. LUNGS: Clear. ABDOMEN: Dressings dry and intact. Pressure dressing is on former hernia site. Abdominal binder is on. EXTREMITIES: Without peripheral edema. ASSESSMENT: 1. Exploratory laparotomy with lysis of adhesions. 2. Repair of incarcerated umbilical and incarcerated incisional hernias with mesh. 3. Reduction of small bowel volvulus. 4. Excision of peritoneal nodule. 5. Placement of Vicryl mesh. POSTOPERATIVE DIAGNOSES: 1. Incarcerated incisional hernia. 2. Incarcerated umbilical hernia. 3. Peritoneal nodule causing distortion of the small bowel 11.5. 4. Small bowel volvulus. 5. Date of procedure 07/26/2020. Surgeon: Armando Brown MD. PLAN: 1. Continue bowel stimulation. 2. Flomax 0.4 mg p.o. now. 3. Flomax 0.4 mg at bedtime. 4. If Manju has not urinated by 12 noon, put in a Rodriguez and leave it until 0500 07/29/2020. 5. Discontinue SYSTEMS PROGRAMMER ANALYST and continuous pulse ox. Saline lock IV. Dilaudid 2 to 4 mg q.4 hours p.r.n. pain. Olimpia Bloom PA-C /[id number]
[2020-07-28] MEDS: Cyclobenzaprine 10 MG Tab PO PRN (15:39)
[2020-07-28] MEDS: Pantoprazole 40 MG Delayed-Release Granules 1 Packet PO SCH (15:42)
[2020-07-28] MEDS ORDERED: Tamsulosin 0.4 MG Cap.ER PO SCH (21:00)
[2020-07-28] MEDS: [UNRECOGNIZED DRUG - OTHER] PO SCH (22:08)
[2020-07-28] MEDS: Zolpidem 5 MG Tab PO PRN (22:08)
[2020-07-29] MEDS: Acetaminophen 500 MG Tab PO SCH (05:40)
[2020-07-29] MEDS ORDERED: Magnesium Hydroxide 400 MG/5 ML Susp 30 ML Cup PO PRN (07:50)
[2020-07-29] MEDS: Heparin Sodium 5,000 Units/ML Vial SUBCUT SCH (08:11)
[2020-07-29] MEDS: Celecoxib 200 MG Cap PO SCH (08:12)
[2020-07-29] MEDS: FLUoxetine 20 MG Cap PO SCH (08:12)
[2020-07-29] MEDS: Bisacodyl 5 MG Tab PO SCH (08:12)
[2020-07-29] MEDS: Docusate Sodium 100 MG Cap PO SCH (08:17)
--- OUTSIDE RECORDS SUMMARY | 2020-07-29 08:39 | XMSREPORT ---
:1985 Author Organization [facility] Address [address] [place] [address] Phone Reason For Referral No Reason for Referral was given. History Of Present Illness No HPI available. Assessments No Assessments available Plan of Care Name Dates Details Planned Observations Hospital Referral Request
--- OUTSIDE RECORDS SUMMARY | 2020-07-29 08:40 | XMSREPORT ---
:1985 Author Name Reinbold Address Unavailable Unavailable , Care Team Providers Name Role Phone Rahul Unavailable Unavailable Beatrice Unavailable Unavailable Rahul, Garrett Unavailable Unavailable Mac Unavailable Unavailable Unavailable Unavailable Unavailable Reason for Referral For: Abdominal wall hernia Sending information for hospitalization History of Present Illness Patient is a 35 year old female that presents with concerns of abdominal bulge with pain. Pain is intermittent/sporadic was located in the LUQ, and she is not having it now. The bulge is midline from umbilicus to xiphoid process. No nausea or vomiting since the . This is when a CT scan was done and found Patient has consulted the bariatric surgery team via telehealth at [place] and they would like to know exactly what this is. If it's a hernia they want to see her for surgical repair as soon as possible. BM's are normal and soft. She was started on Reglan and has now decreased that dose from QID to PRN. Also started on Bentyl as needed and has only taken once. In addition, onthe CT scan it was noted that she has diffuse idiopathic skeletal hyperostosis. She does have chronic thoracic back pain and typically manages this with chiropractic, massage, Tylenol, Aleve prn. This helps but it seems the pain is always there and chiropractor would like to know how severe and how many vertebra are affected by this. Assessments Assessed Problems:History of Current every day smokerAbdominal pain, unspecified abdominal locationAbdominal wall herniaChronic thoracic back pain Problems Migraine (346.90) (G43.909) Encounter for administration of vaccine (V05.9) (Z23) Exposure to COVID-19 virus (V01.79) (Z20.822) High triglycerides (272.1) (E78.1) Seasonal allergies (477.9) (J30.2) Polycystic ovary syndrome (256.4) (E28.2) Ear discomfort (388.70) (H92.09) Pre-op exam (V72.84) (Z01.818) Constipation (564.00) (K59.00) Obesity (278.00) (E66.9) Sleep apnea (780.57) (G47.30) Diarrhea (787.91) (R19.7) Elevated vitamin B12 level (790.99) (R74.8) Hypomagnesemia (275.2) (E83.42) Caffeine use (V49.89) (Z78.9) Pelvic pain (R10.2) Bilateral kidney stones (592.0) (N20.0) Lesion of left [place] kidney (593.9) (N28.9) GERD (gastroesophageal reflux disease) (530.81) (K21.9) Anger (799.29) (R45.4) Anxiety (300.00) (F41.9) Multiple kidney stones (592.0) (N20.0) Depression (311) (F32.9) Sleep disturbance (780.50) (G47.9) Left otitis media (382.9) (H66.92) Migraine without aura, intractable (346.11) (G43.019) Abdominal wall hernia (553.20) (K43.9) Abdominal pain, unspecified abdominal location (789.00) (R10 .9) Chronic thoracic back pain (724.1) (M54.6) Exposure to influenza (V01.79) (Z20.828) Smoking addiction (305.1) (F17.200) Intussusception of small bowel (560.0) (K56.1) Nasal congestion (478.19) (R09.81) Cerumen impaction (380.4) (H61.20) Hypoactive sexual desire disorder (302.71) (F52.0) History of gastric bypass (V45.86) (Z98.84) Allergies and Adverse Reactions No Known Drug Allergies (Allergy) Medications Vitamin D-3 125 MCG (5000 UT) Oral Tablet Refills: 0 Dicyclomine HCl - 10 MG Oral Capsule; TAKE 1 CAPSULE EVERY 6 HOURS NEEDED. Start: 28-Jun-2020 Refills: 0 Reglan 10 MG Oral Tablet; TAKE 1 TABLET 4 TIMES DAILY, BEFORE MEALS AND AT BEDTIME. Start: 28-Jun-2020 Refills: 0 Addyi 100 MG Oral Tablet; Take one tab at bedtime daily Darrius Jiang Start: 17-Jun-2020 Quantity: 56 Refills: 0 FLUoxetine HCl - 40 MG Oral Capsule; TAKE 1 CAPSULE BY MOUTH ONCE A DAY Caroline Kay Start: 02-Jun-2018 Quantity: 30 Refills: 5 Adeks TABS; TAKE 1 TABLET DAILY. Refills: 0 Fish Oil 1000 MG Oral Capsule Refills: 0 Ketorolac Tromethamine 10 MG Oral Tablet ; Take one tablet every 8 hours as needed for migraine headache Darrius Barron Start: 03-Jun-2020 Quantity: 20 Refills: 0 Procedures History of Gallbladder Surgery Status: C ompleted History of Section Status: Comp leted History of Cystoscopy With Pyeloscopy With Removal Of Calcul us Status: Completed Immunizations DTaP (Daptacel) 0 On: 1985 OPV 0 On: 1985 A-S MEDICATION SOLUTIONS DTaP (Daptacel) 0 On: 04-Mar-1984 OPV 0 On: 04-Mar-1984 A-S MEDICATION SOLUTIONS DTaP (Daptacel) 0 On: 06-May-1984 OPV 0 On: 06-May-1984 A-S MEDICATION SOLUTIONS MMR 0 On: 05-Aug-1984 Hepatitis B 0 On: 26-Dec-1995 Lot #: [id number], Hepatitis B 0 On: 31-Jan-1996 Lot #: [id number], MMR 0 On: 25-Jun-1996 Lot #: [id number], Hepatitis B 0 On: 25-Jun-1996 Lot #: [id number], HPV (Gardasil) 0 On: 09-Sep-2008 Lot #: [id number], HPV (Gardasil) 0 On: 15-Nov-2008 Lot #: [id number], Tdap 0 On: 15-Nov-2008 Lot #: [id number], Influenza A (H1N1) Monoval PF SUSP 0 On: 19-Apr-2009 Lot #: [id number], HPV (Gardasil) 0 On: 11-May-2009 Lot #: [id number], Influenza 0 On: 30-Jan-2013 Tdap 0 On: 18-Jan-2014 Influenza 0 On: 12-Jan-2015 Influenza On: 06-Feb-2016 Fluzone Quadrivalent 0.5 ML Intramuscular Suspension P refilled Syringe On: Jan-2017 Prevnar 13 Intramuscular Suspension On: 15-Jan-2017 Lot #: [id number], PFIZER Influenza On: 24-Jan-2018 Influenza On: 09-Jan-2019 Afluria Quadrivalent 0.5 ML Intramuscular Suspension P refilled Syringe On: 05-Feb-2020 Lot #: [id number], SEQIRUS Family History Family history of type 2 diabetes mellitus (V18.0) (Z83.3) S tatus: Active Family history of hypertension (V17.49) (Z82.49) Status: Act baylee Family history of high cholesterol (V18.19) (Z83.42) Status: Active Family history of type 2 diabetes mellitus (V18.0) (Z83.3) S tatus: Active Family history of osteoporosis (V17.81) (Z82.62) Status: Act baylee Family history of Cervical carcinoma (180.9) (C53.9) Status: Active Family history of type 2 diabetes mellitus (V18.0) (Z83.3) S tatus: Active Family history of type 2 diabetes mellitus (V18.0) (Z83.3) S tatus: Active Family history of hypertension (V17.49) (Z82.49) Status: Act baylee Family history of high cholesterol (V18.19) (Z83.42) Status: Active Social History - Smokes tobacco daily Interventions Labs/Procedures/ImagingTobacco Use Screening; Done: Jun1PlanUnknown if these are hernias or diastases recti. Will obtain a MRI to help determine this and send results to [facility]. Encouraged to avoid lifting as much as possible. If she develops increased pain she needs to be seen. Obtain MRI of thoracic spine and consider PT for treatment to maintain ROM. Plan of Treatment Hospital Referral Request Planned Goals not documented Results MR Abdomen w wo Cont Laboratory: [facility] (Pending) [facility] 11-Jul-2020 13:38 MR Abdomen w wo Cont Comments: Result do cument to be provided separate ly MR Thoracic Spine Comp wo Laboratory: [facility] Cont (Pending) [facility] 11-Jul-2020 13:39 MR Thoracic Spine Comp wo Comments: Resu lt document to Cont be provided separate ly CORONAVIRUS COVID-19 [facility] Laboratory: [facility] Comments: COVID 19 Reason for Test: Pre-Procedure Screening Reason for Exam: [id number], Source: [employer] 25-Jul-2020 7:30 CORONAVIRUS COVID-19 [facility] Range: NEGATIV E NEGATIVE (Normal) Comments: The 2019 n ovel coronavirus (SARS-CoV-2) target nucleic acids are not detected. The Xpert Xpress SARS-CoV-2, real- time RT-PCR test has been performed under FDA's Emergency Use Authorization (EUA) for in-vitro use only. This test has been internally validated by [facility]. This result does not rule out co- infections with other pathogens. Vital Signs 04-Jul-2020 14:51 Systolic 102 mm[Hg] Diastolic 62 mm[Hg] Height 64 in Weight 196 lb BMI Calculated 33.64 kg/m2 BSA Calculated 1.94 m2 Respiration 16 /min Temperature 97.6 f Heart Rate 68 /min Encounters Appointment; MAMIE-Staff, Nurse 07-Apr-2020 8:00 Encounter Diagnosis: Problem not documented Appointment; PATRICIAStaff, Nurse 05-Feb-2020 15:15 Encounter Diagnosis: Problem not documented Appointment; Mac Wendi 09-Jun-2019 14:00 Encounter Diagnosis: Problem not documented Appointment; Mac Wendi 25-Feb-2019 15:00 Encounter Diagnosis: Problem not documented Appointment; Mac Wendi 10-Nov-2018 8:00 Encounter Diagnosis: Problem not documented Appointment; Manan Briseno 16-Oct-2018 9:30 Encounter Diagnosis: Problem not documented
[2020-07-29] MEDS: Nicotine 14 MG/24 Hr Patch TRDERM SCH (09:59)
[2020-07-29] MEDS: HYDROmorphone 2 MG Tab PO PRN (10:11)
--- NOTE | 2020-08-01 12:18 | DISCH ---
ADMISSION DIAGNOSES: Incarcerated umbilical hernia and incarcerated incisional hernia with mesh. DISCHARGE DIAGNOSES: 1. Exploratory laparotomy with lysis of adhesions. 2. Repair of incarcerated umbilical and incarcerated incisional hernias with mesh. 3. Reduction of small bowel volvulus. 4. Excision of peritoneal nodule. 5. Placement of Vicryl mesh. POSTOPERATIVE DIAGNOSES: 1. Incarcerated incisional hernia. 2. Incarcerated umbilical hernia. 3. Peritoneal nodule causing distortion of the small bowel, 11.5 cm. 4. Small bowel volvulus. 5. Date of procedure 07/26/2020. Surgeon: Armando Brown MD. HISTORY: Manju Rojas is a 35-year-old female with incarcerated umbilical and incarcerated incisional hernias. After preoperative evaluation and discussion of possible risks and possible complications, she wished to proceed with surgical procedure. HOSPITAL COURSE: Pamella had her surgery on 07/26/2020. She had no operative complications. On postop day 1, she was started on a step-3 gastric bypass diet. Her Rodriguez was discontinued, and she was started on bowel stimulation. On postop day 2, she continued with bowel stimulation. She was unable to urinate, so Flomax was started, and later on she was able to urinate. 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 PHYSICAL EXAMINATION: GENERAL: Manju Rojas is a pleasant 35-year-old female. VITAL SIGNS: Height is 5 feet 4.9 inches, weight is 200 pounds. TPR is 96.9, 69, 16, blood pressure 119/82. HEENT: Negative. NECK: Supple. HEART: Regular rate and rhythm. LUNGS: Clear. ABDOMEN: Aquacel dressings on. Rolled Kerlix over hernia site. Abdominal binder is on. EXTREMITIES: Without peripheral edema. DISPOSITION: Discharged to home. CONDITION: Stable and improving. FOLLOWUP APPOINTMENT: 1. Olimpia Bloom PA-C, 08/04/2020, at 9 a.m. of virtual appointment. 2. She is to have her sharri removed by her PCP on 08/05/2020. Put on benzoin and Steri-Strips. Leave Steri-Strips on for 2 weeks and then remove. NEW PRESCRIPTIONS: 1. Celebrex 200 mg p.o. b.i.d., #28. 2. Dilaudid 2 to 4 mg oral q.4 hours p.r.n. pain, #42. 3. Milk of magnesia 30 mL, 2 were sent home with the patient to take 1 daily p.r.n. constipation. 4. She is to resume her home medications. DIET: Usual diet as tolerated. Drink 6 to 8 glasses of water a day. ACTIVITY: No lifting over 10 pounds for 6 weeks. OTHER ACTIVITY: Walk 6 times daily inside your home. Driving: Do not drive for 1 week or within 6 hours of taking Dilaudid pain medication. Shower/bathing: May shower. Notify provider if any fever, increased pain, swelling, redness, drainage, nausea, or vomiting. Wound incision care: Keep site clean and dry. Wear abdominal binder with rolled up Kerlix over incision for 2 weeks. Continue wearing abdominal binder for 6 weeks. Take off Aquacel dressing on Saturday. SPECIAL INSTRUCTION: Use incentive spirometer 10 times every hour while awake. /[id number]
--- NOTE | 2020-08-01 19:01 | OR ---
DATE OF PROCEDURE: 07/26/2020 SURGEON: Armando Brown MD PREOPERATIVE DIAGNOSIS: Incisional hernia. POSTOPERATIVE DIAGNOSES: 1. Incarcerated incisional and incarcerated umbilical hernias. 2. Peritoneal nodule causing distortion of small bowel. 3. Small bowel volvulus. OPERATIVE PROCEDURE: 1. Exploratory laparotomy with lysis of adhesions and: a. Repair of incarcerated umbilical and incarcerated incisional hernias with mesh (73237, 86676, 52405). 2. Reduction of small bowel volvulus, closure of internal hernia (06357). 3. Excision of peritoneal nodule extending from the abdominal wall onto small bowel causing distortion of small bowel (55402). 4. Placement of Vicryl mesh to limit recurrent adhesion formation between pelvic and abdominal wall and underlying viscera (64435). ANESTHESIA: General. HERB DOCTOR: Olimpia Bloom PA-C INDICATIONS FOR PROCEDURE: The patient presents with an incisional hernia involving previous upper midline incision which has become increasingly symptomatic. After preop evaluation and discussion, she wished to proceed with repair of this with mesh. Potential risks including bleeding, infection, injury to underlying viscera, problems with mesh becoming infected or the hernia recurring were all reviewed, and the patient wishes to proceed. DETAILS OF PROCEDURE: The patient was taken to the operating room and placed in a supine position. After general endotracheal anesthesia was induced, a Rodriguez catheter was inserted, and the abdomen prepped and draped. The previous upper midline incision was reused from the level of the umbilicus roughly handsbreadth superior to that. This was carried down through the skin, subcutaneous tissue. The hernia sac involving the previous midline incision was encountered and this was dissected down to the level of the fascial edges. The hernia sac was then opened and it was noted to contain some incarcerated omentum and transverse colon. The incarcerated components were then dissected free from the hernia sac which was then excised flush with the underlying fascial edges. The patient was also noted to have separate umbilical hernia which contained some incarcerated omentum within it. This was freed up and the omentum returned back into the peritoneal cavity. General exploration revealed an elongated peritoneal nodule extending from the anterior abdominal wall down along the proximal small bowel. This was causing some distortion of the proximal small bowel and this peritoneal lesion was then excised and sent as a separate specimen. This was a fairly long peritoneal implant measuring around 11.5 cm upon its final removal. Further examination did reveal area of focal small bowel volvulus. This involved an area of the common limb prolapsing from the right to the left underneath the small opening in the mesentery underlying the jejunojejunostomy. This was reduced and that underlying mesenteric defect then closed with a 2-0 silk stitch. At this point, the hernia was mapped out and it was felt that the portions that would tend to have this recur were primarily in a lateral direction. A Ventrio ST mesh measuring 22 x 27 cm was then selected and was mapped out such that the sutures that would be placed mesh well away from the fascial defects. The mesh was eventually placed in an orientation that the long axis was within the transverse orientation. 2-0 Vicryl sutures were placed on the polypropylene side of the mesh which was then soaked in an antibiotic- containing saline solution. The mesh was then placed in the intraperitoneal location. The left side of the sutures were then initially placed and pulled up. A 12-inch square area of Vicryl mesh was then placed underneath the newly placed mesh and along with adjacent abdominal and pelvic wall to limit recurrent adhesion formation. Following this, the remaining sutures were then placed positioning the Ventrio mesh in a location again well away from the fascial edges. These sutures were then tied and the underlying shelf of mesh was also then used with titanium tacking screws to fix the mesh to the abdominal wall circumferentially. At this point, bilateral transversus abdominis plane blocks were placed and the incision was anesthetized with 1% lidocaine mixed with Marcaine. The primary fascial closure was then accomplished with a #2 Vicryl stitch, subcutaneous tissue with 2 layers of 3-0 and 4-0 Vicryl stitch deep, and sharri for the skin. Dressing was applied. The patient was taken to the recovery room in satisfactory condition. Physician miller head assistant wet process, Olimpia Bloom, played an essential role in assisting in this case, helping to position the patient, retract structures as needed, as well as suturing and cutting sutures when indicated. Her presence improved patient safety and decreased operative time. Armando Brown MD /[id number]
== END 2020-07-29 10:23 | disposition home or self-care (01) | DRG 223 ==
LOC: JP.SDSSCHI 07:23 → JP.SDS 07:23 → JP.MS 12:35 → UNDOADMIN 12:35 → EDSTATUS 13:15
PROVIDERS: ADMIT Surgery; ATTEND Surgery
PROC: 0WUF0JZ Supplement Abdominal Wall with Synthetic Substitute, Open Approach (ICD-10-PCS; principal; 2020-07-26)
PROC: 3E0M05Z Introduction of Adhesion Barrier into Peritoneal Cavity, Open Approach (ICD-10-PCS; principal; 2020-07-26)
PROC: 0DS80ZZ Reposition Small Intestine, Open Approach (ICD-10-PCS; principal; 2020-07-26)
PROC: 0JB80ZZ Excision of Abdomen Subcutaneous Tissue and Fascia, Open Approach (ICD-10-PCS; principal; 2020-07-26)
DX: K42.0 Umbilical hernia with obstruction, without gangrene (principal); K56.2 Volvulus; K91.2 Postsurgical malabsorption, not elsewhere classified; K43.0 Incisional hernia with obstruction, without gangrene; Z68.41 Body mass index [BMI] 40.0-44.9, adult; K66.9 Disorder of peritoneum, unspecified; Z98.84 Bariatric surgery status; E55.9 Vitamin D deficiency, unspecified; E16.1 Other hypoglycemia; E53.8 Deficiency of other specified B group vitamins; E53.9 Vitamin B deficiency, unspecified; E60 Dietary zinc deficiency; E50.9 Vitamin A deficiency, unspecified; E28.2 Polycystic ovarian syndrome; E66.9 Obesity, unspecified; G47.30 Sleep apnea, unspecified; F17.210 Nicotine dependence, cigarettes, uncomplicated; Z79.899 Other long term (current) drug therapy; Z99.89 Dependence on other enabling machines and devices; Z90.49 Acquired absence of other specified parts of digestive tract; Z87.442 Personal history of urinary calculi
CPT/HCPCS: 51702; 74018; 74018-26; 81025; 88302; 88305; 94762; A9270-GY; C1713; C1781; C9113; J0171; J0330; J0690; J1100; J1170; J1200; J1644; J2020; J2185; J2405; J2704; J2710; J2795; J2916; J3010; J3410; J3411; J3420; J3490; J7120; J7121

== ENCOUNTER 2022-03-20 07:28 | Inpatient (IN) | payer BC ==
[2022-03-20] MEDS ORDERED: Scopolamine 1.5 MG Transdermal Patch TOP SCH (07:40)
[2022-03-20] MEDS ORDERED: Celecoxib 200 MG Cap PO ONE (07:40)
[2022-03-20] MEDS ORDERED: Acetaminophen 500 MG Tab PO ONE (07:40)
[2022-03-20] MEDS ORDERED: cefOXitin 2 GM in Sodium Chloride 0.9% 50 ML IV ONE (08:00)
[2022-03-20] MEDS ORDERED: Dextrose 5%-Lactated Ringers 1,000 ML IV SCH ×2 (08:00→14:45)
[2022-03-20 08:15] LABS: ESTIMATED GFR 97 mL/min (>60)
[2022-03-20] MEDS ORDERED: Ketamine 17 MG in Sodium Chloride 0.9% 19.83 ML IV SCH (09:30)
[2022-03-20] MEDS ORDERED: Ketamine 500 MG/5 ML MDV IV SCH (09:30)
[2022-03-20] MEDS ORDERED: Ropivacaine 50 ML, dexAMETHasone 8 MG, EPINEPHrine 0.4 MG, Sodium Chloride 0.9% 27.6 ML NERVRT SCH ×4 (09:30)
[2022-03-20] MEDS ORDERED: fentaNYL 250 MCG/5 ML SDV ONE ×2 (09:45→11:52)
[2022-03-20] MEDS ORDERED: Ondansetron 4 MG/2 ML SDV ONE (09:46)
[2022-03-20] MEDS ORDERED: Succinylcholine 200 MG/10 ML MDV ONE (09:46)
[2022-03-20] MEDS ORDERED: Dexamethasone 4 MG/ML SDV ONE (09:46)
[2022-03-20] MEDS ORDERED: Glycopyrrolate 0.2 MG/ML 5 ML MDV ONE (09:46)
[2022-03-20] MEDS ORDERED: Neostigmine Methylsulfate 1 MG/ML 5 ML Syringe ONE (09:46)
[2022-03-20] MEDS ORDERED: Rocuronium 50 MG/5 ML Vial ONE ×2 (09:46→12:30)
[2022-03-20] MEDS ORDERED: Propofol 200 MG/20 ML SDV ONE (09:46)
[2022-03-20] MEDS ORDERED: Lidocaine 1% with EPINEPHrine 1:100,000 50 ML MDV ONE (10:27)
[2022-03-20] MEDS ORDERED: Bupivacaine 0.5% 30 ML SDV ONE (10:27)
[2022-03-20] MEDS ORDERED: Meropenem 500 MG SDV ONE (10:28)
[2022-03-20] MEDS ORDERED: Linezolid 600 MG/300 ML Premix Bag IRR ONE (12:36)
[2022-03-20] MEDS ORDERED: diphenhydrAMINE 50 MG/ML SDV IVPUSH PRN (13:14)
[2022-03-20] MEDS ORDERED: Naloxone 0.4 MG/ML SDV IVPUSH PRN (13:14)
[2022-03-20] MEDS ORDERED: Ondansetron 4 MG/2 ML SDV IVPUSH PRN ×2 (13:14→15:00)
[2022-03-20] MEDS ORDERED: diphenhydrAMINE 25 MG Cap PO PRN (13:14)
[2022-03-20] MEDS: HYDROmorphone/Normal Saline 6 MG/30 ML PCA Vial IV PRN (13:18)
[2022-03-20] MEDS ORDERED: Naloxone 0.4 MG/ML SDV IV PRN (14:00)
[2022-03-20] MEDS ORDERED: Cyclobenzaprine 10 MG Tab PO PRN (14:36)
[2022-03-20] MEDS ORDERED: Labetalol 20 MG/4 ML Syringe IVPUSH PRN (15:00)
[2022-03-20] MEDS ORDERED: Acetaminophen 500 MG Tab PO PRN (15:00)
[2022-03-20] MEDS ORDERED: Metoclopramide 10 MG/2 ML SDV IVPUSH PRN (15:00)
[2022-03-20] MEDS ORDERED: Pantoprazole 40 MG Vial IVPUSH SCH (15:00)
[2022-03-20] MEDS ORDERED: hydrOXYzine HCL 100 MG/2 ML SDV IM PRN (15:00)
[2022-03-20] MEDS: Nicotine 21 MG/24 Hr Patch TRDERM SCH (15:49)
[2022-03-20] MEDS: Sodium Ferric Gluconate Cmplex 250 MG in Sodium Chloride 0.9% 100 ML IV SCH (15:49)
[2022-03-20] MEDS: Acetaminophen 500 MG Tab PO SCH ×2 (15:50→23:57)
[2022-03-20] MEDS: cefOXitin 2 GM in Sodium Chloride 0.9% 50 ML IV SCH ×2 (17:40→23:53)
[2022-03-20] MEDS: diphenhydrAMINE 50 MG/ML SDV IVPUSH PRN ×2 (17:40→23:46)
[2022-03-20] MEDS: MVI, Adult with Vitamin K 10 ML, Thiamine 200 MG, Zinc/Copper/Manganese/Selenium 1 ML i... IV SCH ×4 (20:38)
[2022-03-20] MEDS: traZODone 50 MG Tab PO SCH (20:39)
[2022-03-20] MEDS: Heparin Sodium 5,000 Units/ML Vial SUBCUT SCH (20:39)
[2022-03-21] MEDS: HYDROmorphone/Normal Saline 6 MG/30 ML PCA Vial IV PRN (03:07)
[2022-03-21] MEDS ORDERED: Iopamidol 612 MG/ML 50 ML SDV PO STA (03:21)
[2022-03-21] MEDS: diphenhydrAMINE 50 MG/ML SDV IVPUSH PRN (04:44)
[2022-03-21] MEDS: cefOXitin 2 GM in Sodium Chloride 0.9% 50 ML IV SCH ×3 (05:15→20:28)
[2022-03-21] MEDS ORDERED: diphenhydrAMINE 25 MG Cap PO PRN (07:47)
[2022-03-21] MEDS ORDERED: Ondansetron 4 MG Tab.DIS PO PRN (07:47)
[2022-03-21] MEDS ORDERED: Dextrose 5%-Lactated Ringers 1,000 ML IV SCH (08:00)
[2022-03-21] MEDS: Heparin Sodium 5,000 Units/ML Vial SUBCUT SCH ×2 (08:31→19:18)
[2022-03-21] MEDS: Celecoxib 200 MG Cap PO SCH ×2 (08:31→20:31)
[2022-03-21] MEDS: Acetaminophen 500 MG Tab PO SCH ×2 (08:31→16:09)
[2022-03-21] MEDS: Nicotine 21 MG/24 Hr Patch TRDERM SCH (08:32)
[2022-03-21] MEDS ORDERED: SCOPOLAMINE PATCH CHECK TOP SCH (09:00)
[2022-03-21] MEDS ORDERED: FLUoxetine 20 MG Cap PO SCH (09:00)
[2022-03-21] MEDS: HYDROmorphone 2 MG Tab PO PRN ×2 (14:21→20:28)
[2022-03-21] MEDS: Sodium Ferric Gluconate Cmplex 250 MG in Sodium Chloride 0.9% 100 ML IV SCH (15:13)
[2022-03-21] MEDS ORDERED: Pantoprazole 40 MG Tab.CR PO SCH (16:00)
[2022-03-21] MEDS: traZODone 50 MG Tab PO SCH (20:32)
[2022-03-21] MEDS: MVI, Adult with Vitamin K 10 ML, Thiamine 200 MG, Zinc/Copper/Manganese/Selenium 1 ML i... IV SCH ×4 (21:06)
[2022-03-22] MEDS: Acetaminophen 500 MG Tab PO SCH (00:39)
[2022-03-22] MEDS ORDERED: Cyanocobalamin (Vitamin B12) 1,000 MCG/ML SDV IM ONE (09:00)
== END 2022-03-22 08:10 | disposition home or self-care (01) | DRG 221 ==
LOC: JP.SDSSCHI 07:28 → JP.MS 13:40
PROVIDERS: ADMIT Surgery; ATTEND Surgery
PROC: 0DS80ZZ Reposition Small Intestine, Open Approach (ICD-10-PCS; principal; 2022-03-20)
PROC: 0DB80ZZ Excision of Small Intestine, Open Approach (ICD-10-PCS; 2022-03-20)
PROC: 0WUF0JZ Supplement Abdominal Wall with Synthetic Substitute, Open Approach (ICD-10-PCS; 2022-03-20)
PROC: 3E0M05Z Introduction of Adhesion Barrier into Peritoneal Cavity, Open Approach (ICD-10-PCS; 2022-03-20)
PROC: 0DBW0ZZ Excision of Peritoneum, Open Approach (ICD-10-PCS; 2022-03-20)
DX: K95.89 Other complications of other bariatric procedure (principal); K56.2 Volvulus; K43.0 Incisional hernia with obstruction, without gangrene; K66.9 Disorder of peritoneum, unspecified; E66.9 Obesity, unspecified; G47.30 Sleep apnea, unspecified; Z79.899 Other long term (current) drug therapy; Z68.39 Body mass index [BMI] 39.0-39.9, adult
CPT/HCPCS: 36415; 74240; 74240-26; 80053; 82728; 83735; 83880; 84100; 84703; 85027; A9270-GY; C9113; J0171; J0330; J0694; J1100; J1170; J1200; J1644; J2020; J2185; J2405; J2704; J2710; J2795; J2916; J3010; J3411; J3490; J7121; Q9967